=== PATIENT | female | born 1980 | race Caucasian/White ===

== ENCOUNTER 2023-02-18 10:05 | Emergency (ER) | payer OTHER ==
--- OUTSIDE RECORDS SUMMARY | 2023-02-18 10:09 | XMS REPORT | Continuity of Care Document ---
:1980 Author Organization [facility] t Address [address] [place] [address] [place] [id number] Care Team Providers Name Role Phone Soni Jacobson MD Primary Care Physician [phone] [email or web address] Attending Clinician Unavailable TAYLA MENENDEZ Attending Clinician Unavailable Tayla Shine Attending Clinician Unknown, Attending Attending Clinician Unavailable MANSOOR WARD Attending Clinician Unavailable Mansoor Alexander Attending Clinician Doctor Unassigned, [place] Attending Clinician Unavailable CICI ARMSTRONG Attending Clinician Unavailable Nathaniel WILSON, Cici Attending Clinician Kenzie Manning Attending Clinician Talha Santacruz DO Attending Clinician Enrrique Wall RN Attending Clinician Unavailable David Tavarez DO Attending Clinician Soni Jacobson MD Attending Clinician SONI JACOBSON Attending Clinician Unavailable Bharat LOPES, Nasima Mckee Attending Clinician MARLA SOTO Attending Clinician Unavailable [email or web address] Admitting Clinician Unavailable Payers Payer Name Policy Type Policy Number Effective Date Expiration Date S surendra [employer] [place] - [id number] 2017 00:00:00 OUT OF STATE Problems Condition Condition Condition Status Onset Resolution Last Treating Co mments Source Name Details Category Date Date Treatment Clinician Date Pyelonephr Pyelonephr Disease Active 2020-0 U nivers itis itis 8-23 ity of 00:00: [place] [address] Medical Branch Obesity Obesity Disease Active 2020-0 Univers (BMI (BMI 8-23 ity of 30-39.9) 30-39.9) 00:00: [address] Allergies, Adverse Reactions, Alerts Allergy Allergy Status Severity Reaction(s) Onset Inactive Treating Comm ents Source Name Type Date Date Clinician NO KNOWN Drug Active Univers ALLERGIE Class ity of S [facility] Social History Social Habit Start Date Stop Date Quantity Comments Source Sexual orientation Univer sity of [facility] Exposure to 2021-12-25 2022-01-04 Not sure University of SARS-CoV-2 (event) 00:00:00 11:54:00 [place] [facility] [place] History of Social 2020-01-08 2020-01-08 Univers ity of function 00:00:00 00:00:00 [facility] Tobacco use and 2019-12-03 2019-12-03 Smokeless Universit y of exposure 00:00:00 00:00:00 tobacco non-user [facility] dical Branch Education 2019-12-03 2019-12-03 15 University of 00:00:00 00:00:00 [place] [facility] History SDOH 2019-12-03 2019-12-03 3 University o f Financial 00:00:00 00:00:00 [place] [facility] History SDVA Food 2019-12-03 2019-12-03 1 Univers ity of Worry 00:00:00 00:00:00 [place] [facility] History SDVA Food 2019-12-03 2019-12-03 1 Univers ity of Scarcity 00:00:00 00:00:00 [place] [facility] History SDOH 2019-12-03 2019-12-03 2 University o f Transport Med 00:00:00 00:00:00 [place] [facility] History SDOH 2019-12-03 2019-12-03 2 University o f Transport Non-Med 00:00:00 00:00:00 [place] M edical Branch Sex [birth year] At [birth year] Universit y of 00:00:00 00:00:00 [facility] Smoking Status Start Date Stop Date Source Never smoked tobacco [facility] Medications Ordered Filled Start Stop Current Ordering Indication Dosage Frequency Signature Comments Components Source Medication Medication Date Date Medication? Clinician (SIG) Name Name loratadine- Yes 1{tbl} Take 1 Un luda pseudoephed 9-25 tablet by ity of rine 11:59: mouth [place] (CLARITIN-D 30 daily. Medica l 24 HOUR) Branch 10-240 mg per 24 hr tablet aspirin-delfin 2021-0 Yes 1{tbl} Take 1 Un luda taminophen- 9-25 tablet by ity of caffeine 11:59: mouth [place] (EXCEDRIN) 30 every 6 Medica l 250-250-65 (six) Branch mg per hours as tablet needed for Pain. loratadine- Yes 1{tbl} Take 1 Un luda pseudoephed 9-25 tablet by ity of rine 11:59: mouth [place] (CLARITIN-D 30 daily. Medica l 24 HOUR) Branch 10-240 mg per 24 hr tablet aspirin-delfin 2021-0 Yes 1{tbl} Take 1 Un luda taminophen- 9-25 tablet by ity of caffeine 11:59: mouth [place] (EXCEDRIN) 30 every 6 Medica l 250-250-65 (six) Branch mg per hours as tablet needed for Pain. loratadine- Yes 1{tbl} Take 1 Un luda pseudoephed 9-25 tablet by ity of rine 11:59: mouth [place] (CLARITIN-D 30 daily. Medica l 24 HOUR) Branch 10-240 mg per 24 hr tablet aspirin-delfin 2021-0 Yes 1{tbl} Take 1 Un luda taminophen- 9-25 tablet by ity of caffeine 11:59: mouth [place] (EXCEDRIN) 30 every 6 Medica l 250-250-65 (six) Branch mg per hours as tablet needed for Pain. ondansetron Yes [id number] 4mg Take 1 Univers 4 mg 9-25 tablet by ity of disintegrat 00:00: mouth [place] ing tablet 00 every 8 Medica l (eight) Branch hours as needed for Nausea and Vomiting (N/V). methocarbam 2021- No 500mg 500 mg, U nivers oL 4-05 04-05 Oral, ity of (ROBAXIN) 18:23: 18:24 ONCE, 1 [place] tablet 500 [place] :00 dose, On Medic al mg Wed07/15/21 Branch at 1330, Routine naproxen 2021- No 500mg 500 mg, Univ ers (NAPROSYN) 4- 04-05 Oral, ity of tablet 500 18:23: 18:24 ONCE, 1 Bin[place] as mg 00 :00 dose, On Medical e 07/15/21 Branch at 1330, Routine methocarbam Yes [id number] 500mg Take 1 Univers oL 500 mg 4-05 tablet by ity o f tablet 00:00: mouth 4 [place] 00 (four) Medical times Branch daily as needed for Pain (scale 4-6). naproxen Yes [id number] 500mg Take 1 U nivers (NAPROSYN) 4-05 tablet by ity of 500 mg 00:00: mouth 2 [place] tablet 00 (two) Medical times Branch daily with meals. methocarbam Yes [id number] 500mg Take 1 Univers oL 500 mg 4-05 tablet by ity o f tablet 00:00: mouth 4 [place] 00 (four) Medical times Branch daily as needed for Pain (scale 4-6). naproxen Yes [id number] 500mg Take 1 U nivers (NAPROSYN) 4-05 tablet by ity of 500 mg 00:00: mouth 2 [place] tablet 00 (two) Medical times Branch daily with meals. sulfamethox 2021- No [id number] 1{tbl} Take 1 Univers azole-trime 2-14 -18 tablet by it y of thoprim 00:00: 05:59 mouth 2 [place] (BACTRIM 00 :00 (two) Medical DS) 800-160 times Branch mg per daily for tablet 3 days. amLODIPine Yes [id number] 5mg Take 1 U nivers 5 mg tablet 7-20 tablet by ity of 00:00: mouth [place] 00 daily. Medical Branch amLODIPine Yes [id number] 5mg Take 1 U nivers 5 mg tablet 7-20 tablet by ity of 00:00: mouth [place] 00 daily. Medical Branch amLODIPine 0 Yes [id number] 5mg Take 1 U nivers 5 mg tablet 7-20 tablet by ity of 00:00: mouth [place] 00 daily. Medical Branch amLODIPine 0 Yes [id number] 5mg Take 1 U nivers 5 mg tablet 7-20 tablet by ity of 00:00: mouth [place] 00 daily. Medical Branch amLODIPine 0 Yes [id number] 5mg Take 1 U nivers 5 mg tablet 7-20 tablet by ity of 00:00: mouth [place] 00 daily. Medical Branch amLODIPine 0 Yes [id number] 5mg Take 1 U nivers 5 mg tablet 7-20 tablet by ity of 00:00: mouth [place] 00 daily. Medical Branch amLODIPine Yes [id number] 5mg Take 1 U nivers 5 mg tablet 7-20 tablet by ity of 00:00: mouth [place] 00 daily. Medical Branch amLODIPine 0 Yes [id number] 5mg Take 1 U nivers 5 mg tablet 7-20 tablet by ity of 00:00: mouth [place] 00 daily. Medical Branch amLODIPine 0 Yes [id number] 5mg Take 1 U nivers 5 mg tablet 7-20 tablet by ity of 00:00: mouth [place] 00 daily. Medical Branch amLODIPine 0 Yes [id number] 5mg Take 1 U nivers 5 mg tablet 7-20 tablet by ity of 00:00: mouth [place] 00 daily. Medical Branch loratadine- 0 Yes 1{tbl} Take 1 Un luda pseudoephed 7-19 tablet by ity of rine 23:13: mouth [place] (CLARITIN-D 23 daily. Medica l 24 HOUR) Branch 10-240 mg per 24 hr tablet aspirin-delfin 0 Yes 1{tbl} Take 1 Un luda taminophen- 7-19 tablet by ity of caffeine 23:13: mouth [place] (EXCEDRIN) 23 every 6 Medica l 250-250-65 (six) Branch mg per hours as tablet needed for Pain. loratadine- Yes 1{tbl} Take 1 Un luda pseudoephed 7-19 tablet by ity of rine 23:13: mouth [place] (CLARITIN-D 23 daily. Medica l 24 HOUR) Branch 10-240 mg per 24 hr tablet aspirin-delfin 2020-0 Yes 1{tbl} Take 1 Un luda taminophen- 7-19 tablet by ity of caffeine 23:13: mouth [place] (EXCEDRIN) 23 every 6 Medica l 250-250-65 (six) Branch mg per hours as tablet needed for Pain. loratadine- 2020-0 Yes 1{tbl} Take 1 Un luda pseudoephed 7-19 tablet by ity of rine 18:13: mouth [place] (CLARITIN-D 23 daily. Medica l 24 HOUR) Branch 10-240 mg per 24 hr tablet aspirin-delfin 2020-0 Yes 1{tbl} Take 1 Un luda taminophen- 7-19 tablet by ity of caffeine 18:13: mouth [place] (EXCEDRIN) 23 every 6 Medica l 250-250-65 (six) Branch mg per hours as tablet needed for Pain. loratadine- 2020-0 Yes 1{tbl} Take 1 Un luda pseudoephed 7-19 tablet by ity of rine 18:13: mouth [place] (CLARITIN-D 23 daily. Medica l 24 HOUR) Branch 10-240 mg per 24 hr tablet aspirin-delfin 2020-0 Yes 1{tbl} Take 1 Un luda taminophen- 7-19 tablet by ity of caffeine 18:13: mouth [place] (EXCEDRIN) 23 every 6 Medica l 250-250-65 (six) Branch mg per hours as tablet needed for Pain. loratadine- 2020-0 Yes 1{tbl} Take 1 Un luda pseudoephed 7-19 tablet by ity of rine 18:13: mouth [place] (CLARITIN-D 23 daily. Medica l 24 HOUR) Branch 10-240 mg per 24 hr tablet aspirin-delfin 2020-0 Yes 1{tbl} Take 1 Un luda taminophen- 7-19 tablet by ity of caffeine 18:13: mouth [place] (EXCEDRIN) 23 every 6 Medica l 250-250-65 (six) Branch mg per hours as tablet needed for Pain. loratadine- 2020-0 Yes 1{tbl} Take 1 Un luda pseudoephed 7-19 tablet by ity of rine 18:13: mouth [place] (CLARITIN-D 23 daily. Medica l 24 HOUR) Branch 10-240 mg per 24 hr tablet aspirin-delfin Yes 1{tbl} Take 1 Un luda taminophen- 7-19 tablet by ity of caffeine 18:13: mouth [place] (EXCEDRIN) 23 every 6 Medica l 250-250-65 (six) Branch mg per hours as tablet needed for Pain. loratadine- Yes 1{tbl} Take 1 Un luda pseudoephed 7-19 tablet by ity of rine 18:13: mouth [place] (CLARITIN-D 23 daily. Medica l 24 HOUR) Branch 10-240 mg per 24 hr tablet aspirin-delfin Yes 1{tbl} Take 1 Un luda taminophen- 7-19 tablet by ity of caffeine 18:13: mouth [place] (EXCEDRIN) 23 every 6 Medica l 250-250-65 (six) Branch mg per hours as tablet needed for Pain. ciprofloxac 2020- No [id number] 500mg Take 1 Univers in HCl 500 7-19 07-25 tablet by ity of mg tablet 00:00: 04:59 mouth [place] 00 :00 every 12 Medical (twelve) Branch hours for 5 days. cefUROXime 2019-04 Yes [id number] 250mg Take 1 Univers 250 mg 2-04 tablet by ity of tablet 00:00: mouth 2 [place] 00 (two) Medical times Branch daily. cefUROXime 2019- Yes [id number] 250mg Take 1 Univers 250 mg 2-04 tablet by ity of tablet 00:00: mouth 2 [place] 00 (two) Medical times Branch daily. cefUROXime 2019- Yes [id number] 250mg Take 1 Univers 250 mg 2-04 tablet by ity of tablet 00:00: mouth 2 [place] 00 (two) Medical times Branch daily. cefUROXime 2020-1 Yes [id number] 250mg Take 1 Univers 250 mg 2-04 tablet by ity of tablet 00:00: mouth 2 [place] 00 (two) Medical times Branch daily. cefUROXime 2019- Yes [id number] 250mg Take 1 Univers 250 mg 2-04 tablet by ity of tablet 00:00: mouth 2 [place] 00 (two) Medical times Branch daily. Guaifenesin Yes [id number] 1200mg Take 1 Univers (MUCINEX) 12-06 tablet by ity o f 1,200 mg 00:00: mouth 2 [place] tablet 00 (two) Medical times Branch daily. Guaifenesin 2020- No [id number] 1200mg Take 1 Univers (MUCINEX) 12-06 [id number] tablet by ity of 1,200 mg 00:00: 00:00 mouth 2 [place] tablet 00 :00 (two) Medical times Branch daily. Guaifenesin 2020- No [id number] 1200mg Take 1 Univers (MUCINEX) 12-06 [id number] tablet by ity of 1,200 mg 00:00: 00:00 mouth 2 [place] tablet 00 :00 (two) Medical times Branch daily. albuterol 2020- No [id number] 2{puff} Inhale 2 Univers 90 12-06 Puffs ity of mcg/actuati 00:00: 04:59 every 6 [place] on inhaler 00 :00 (six) Medical hours as Branch needed for Wheezing or Shortness of Breath for up to 30 days. ciprofloxac 2019- No [id number] 500mg Take 1 Univers in HCl 500 12-06 tablet by ity of mg tablet 00:00: 04:59 mouth [place] 00 :00 every 12 Medical (twelve) Branch hours for 10 days. No known No Univers medications [facility] Vital Signs Vital Name Observation Time Observation Value Comments Source Systolic blood 2022-01-04 17:00:00 149 mm[Hg[facility] Diastolic blood 2022-01-04 17:00:00 96 mm[Hg] [facility] Heart rate 2022-01-04 16:59:00 105 /min [facility] Body temperature 2022-01-04 16:59:00 36.89 Alexa [facility] Respiratory rate 2022-01-04 16:59:00 16 /min [facility] Body height 2022-01-04 16:59:00 160 cm [facility] Body weight 2022-01-04 16:59:00 83.689 kg [facility] BMI 2022-01-04 16:59:00 32.68 kg/m2 Universi ty [facility] [place] [facility] Oxygen saturation in 2022-01-04 16:59:00 100 /min University of Arterial blood by [email or web address] sushant Pulse oximetry Branch Systolic blood 2021-07-15 17:14:00 151 mm[Hg] Univer sity of pressure [place] [facility] Diastolic blood 2021-07-15 17:14:00 112 mm[Hg] Unive rsity of pressure [place] [facility] Heart rate 2021-07-15 17:14:00 83 /min Universi ty [facility] [place] [facility] Body temperature 2021-07-15 17:14:00 36.61 Alexa Univ ersity of [place] [facility] Respiratory rate 2021-07-15 17:14:00 18 /min Univ ersity of [place] [facility] Body height 2021-07-15 17:14:00 160 cm [facility]i ty [facility] [place] [facility] Body weight 2021-07-15 17:14:00 83.915 kg [facility]i ty [facility] [place] [facility] BMI 2021-07-15 17:14:00 32.77 kg/m2 Universi ty [facility] [place] [facility] Oxygen saturation in 2021-07-15 17:14:00 99 /min University of Arterial blood by [email or web address] sushant Pulse oximetry Branch Systolic blood 2021-05-26 22:02:00 137 mm[Hg] Univer sity of pressure [place] [facility] Diastolic blood 2021-05-26 22:02:00 82 mm[Hg] Unive rsity of pressure [place] [facility] Heart rate 2021-05-26 22:02:00 94 /min Universi ty [facility] [place] [facility] Body temperature 2021-05-26 22:02:00 36.67 Alexa Univ ersity of [place] [facility] Respiratory rate 2021-05-26 22:02:00 17 /min Univ ersity of [place] [facility] Body height 2021-05-26 22:02:00 160 cm Universi ty [facility] [place] [facility] Body weight 2021-05-26 22:02:00 85.276 kg [facility]i ty [facility] [place] [facility] BMI 2021-05-26 22:02:00 33.30 kg/m2 Universi ty [facility] [place] [facility] Oxygen saturation in 2021-05-26 22:02:00 100 /min University of Arterial blood by [place] Medi sushant Pulse oximetry Branch Systolic blood 2020-03-15 17:44:00 138 mm[Hg] Univer sity of pressure [facility] Diastolic blood 2020-03-15 17:44:00 97 mm[Hg] Unive rsity of pressure [facility] Heart rate 2020-03-15 17:44:00 78 /min Universi ty of [facility] Body temperature 2020-03-15 17:44:00 36.39 Alexa Univ ersity of [facility] Body height 2020-03-15 17:44:00 160 cm Universi ty [facility] [place] [facility] Body weight 2020-03-15 17:44:00 80.74 kg Universi ty [facility] [place] [facility] BMI 2020-03-15 17:44:00 31.53 kg/m2 Universi ty of [facility] Systolic blood 2020-01-08 21:03:00 154 mm[Hg] Univer sity of pressure [facility] Branch Diastolic blood 2020-01-08 21:03:00 97 mm[Hg] Unive rsity of pressure [facility] Heart rate 2020-01-08 21:03:00 75 /min Universi ty of [facility] Body temperature 2020-01-08 21:03:00 36.78 Alexa Univ ersity of [facility] Body height 2020-01-08 21:03:00 160 cm [facility]i ty [facility] [place] [facility] Body weight 2020-01-08 21:03:00 77.111 kg [facility]i ty [facility] [place] [facility] BMI 2020-01-08 21:03:00 30.11 kg/m2 Universi ty of [facility] Systolic blood 2020-01-08 21:03:00 154 mm[Hg] Univer sity of pressure [facility] Diastolic blood 2020-01-08 21:03:00 97 mm[Hg] Unive rsity of pressure [facility] Branch Heart rate 2020-01-08 21:03:00 75 /min Universi ty of [facility] Body temperature 2020-01-08 21:03:00 36.78 Alexa Univ ersity of [facility] Body height 2020-01-08 21:03:00 160 cm Universi ty of [facility] Body weight 2020-01-08 21:03:00 77.111 kg Universi ty of [facility] Branch BMI 2020-01-08 21:03:00 30.11 kg/m2 Universi ty of [facility] Procedures Procedure Date / Time Performed Performing Clinician Julio e ASSIGNMENT OF BENEFITS 2021-07-15 18:26:35 Doctor Unassigned, No [facility] Name [facility] POCT TEST 2021-07-15 18:17:00 Mansoor Ward [facility] COMP. METABOLIC PANEL 2021-07-15 18:16:00 Mansoor Ward [facility] ([id number]) [facility] CBC WITH DIFF 2021-07-15 18:16:00 Mansoor Ward [facility] URINALYSIS 2021-07-15 18:16:00 Mansoor Ward [facility] CONSENT/REFUSAL FOR 2021-07-15 17:09:08 Doctor [facility]igned, [facility] TREAT[facility] POCT URINALYSIS 2021-05-26 22:09:00 Cici Armstrong [facility] CONSENT/REFUSAL FOR 2021-05-26 21:58:17 Doctor Unassigned, No [facility] TREATMENT REFERRAL- 2021-05-08 06:01:00 Doctor Unassigned, No [facility] REQUEST/RESPONSE [facility] NOTICE OF PRIVACY 2020-10-26 20:26:18 Doctor Unassigned, No [facility] PRACTICES [facility] Encounters Start End Encounter Admission Attending Care Care Encounter Source Date/Time Date/Time Type Type Clinicians Facility Department ID 2021-02-10 Emergency [facility] [id number] Univers 08:52:29 [facility] 2023-02-06 2023-02-06 Outpatient [email or web address] PRIV PRIV [id number] [facility] 00:00:00 00:00:00 diyala_S [id number] Medic al 2022-01-04 2022-01-04 Outpatient R SHON [facility] [id number] Univers 12:00:00 12:20:03 TAYLA [facility] 2022-01-04 2022-01-04 Urgent Tayla Menendez [facility] [id number] Univers 12:00:00 12:20:03 Care Unknown, Attending [id number] [id number] Bin[place] as DESTINY?BLEA [phone] [address] MEDICAL OFFICE [facility] 2021-07-15 2021-07-15 Emergency [facility] [id number] Univers 12:18:00 15:42:00 MANSOOR ity of [facility] 2021-07-15 2021-07-15 Emergency [facility] [id number] Univers 12:18:00 15:42:00 Mansoor S [place] [id number] i ty of [id number] [phone] [facility] 084 [place] 2021-05-28 2021-05-28 Patient Doctor ALLISON [id number] Univers 00:00:00 00:00:00 Secure Msg Unassigned, JANNET [id number] ity of [place] [facility] [id number] Binh as [phone] [facility] 019 [place] 2021-05-26 2021-05-26 Outpatient [facility] [id number] Univers 16:20:00 16:24:06 CICI ity [facility] 2021-05-26 2021-05-26 [facility] [id number] Univers 16:20:00 16:24:06 Care [facility] [id number] it y of [place] [id number] [place] as DESTINY?BLEA [phone] [address] [facility] 2021-05-26 2021-05-26 Orders Doctor ALLISON [id number] Univers 00:00:00 00:00:00 Only Unassigned, JANNET [id number] ity of [place] [facility] [id number] Binh as [phone] [facility] 009 [place] 2021-05-12 2021-05-12 Letter ALLISON Manning [id number] Univers 00:00:00 00:00:00 (Out) Kenzie JANNET [id number] it y of HOSPITAL [id number] Binh as [phone] [facility] 043 Branch 2021-05-08 2021-05-08 Orders Doctor ALLISON 1.2.840.114 [id number] Univers 00:00:00 00:00:00 Only Unassigned, JANNET [id number] ity of [place] [facility] [id number] Binh as [phone] [facility] 009 Branch 2021-05-08 2021-05-08 Patient Doctor ALLISON 1.2.840.114 [id number] Univers 00:00:00 00:00:00 Secure Msg Unassigned, JANNET [id number] ity of [place] [facility] [id number] Binh as [phone] [facility] 019 Branch 2020-11-19 2020-11-19 Refill Neeta [facility] 1.2.840.114 [id number] Univers 00:00:00 00:00:00 Talha PRIMARY [id number] it y [id number] [facility] [phone] Ca dical 389 Branch 2020-10-29 2020-10-29 Transition Kristie Wall 1.2.840.114 [id number] Univers 00:00:00 00:00:00 of Care Enrrique Chelsea Diamondy [id number] ity of [id number] [phone] [facility] 403 Branch 2020-10-26 2020-10-26 Orders Doctor ALLISON 1.2.840.114 [id number] Univers 00:00:00 00:00:00 Only Unassigned, JANNET [id number] ity of [place] [facility] [id number] Binh as [phone] [facility] 009 Branch 2020-06-27 2020-06-27 Patient Corby [facility] 1.2.840.114 [id number] Univers 00:00:00 00:00:00 Outreach David PRIMARY [id number] i ty of [id number] [place] [phone] Ca [address] 2020-03-15 2020-03-15 Office [facility] 1.2.840.114 [id number] Univers 11:37:23 11:52:23 Visit Soni Goodson [id number] it y of [place] [id number] Binh as Professio [phone] [address] Office [facility] 2020-03-15 2020-03-15 Outpatient R [facility] [id number] Univers 11:15:00 11:15:00 [facility] 2020-03-15 2020-03-15 Telephone [facility] 1.2.840.114 [id number] Univers 00:00:00 00:00:00 Soni [facility] [id number] it y of [place] [id number] Binh as Professio [phone] [address] 2020-01-08 2020-01-08 [facility] 1.2.840.114 [id number] 15:59:36 16:29:36 Visit Soni [facility] [id number] [place] [id number] Professio [phone] [address] 2020-01-08 2020-01-08 [facility] 1.2.840.114 [id number] Univers 15:59:36 16:29:36 Visit Soni [facility] [id number] it y of [place] [id number] Binh as Professio [phone] [address] Office [facility] 2020-01-08 2020-01-08 Outpatient R [facility] [id number] Univers 16:15:00 16:15:00 [facility] 2020-01-08 2020-01-08 Letter [facility] 1.2.840.114 [id number] 00:00:00 00:00:00 (Out) Soni [facility] [id number] [place] [id number] Professio [phone] nal [address] 2020-01-08 2020-01-08 Letter Juan Carlos [facility] 1.2.840.114 [id number] Univers 00:00:00 00:00:00 (Out) Soni Kellee [id number] it y of Frankie Ortiz [id number] Binh as Professio [phone] Me dical [facility] 044 Branch Office [address] 2019-12-08 2019-12-08 Transition Kristie Nicholson 1.2.840.114 [id number] Univers 00:00:00 00:00:00 of Care Nasima Anderson [id number] i ty of [id number] [phone] [place] [address] Branch 2019-12-03 2019-12-03 Emergency [facility] [id number] Univers 10:58:00 10:58:00 MARLA boykin of [facility] Results Test Description Test Time Test Comments Results Result Comments Source COMP. METABOLIC PANEL (85144) 2021-07-15 18:36:55 Test Item Value Reference Range Interpretation Comme nts NA (test code = 4001769732) 139 mmol/L 135-145 K (test code = 7990594667) 4.2 mmol/L 3.5-5.0 CL (test code = 3563501507) 103 mmol/L 98-108 CO2 TOTAL (test code = 27 mmol/L 23-31 [id number]) AGAP (test code = 4289695153) 2-16 BUN (test code = 4543334277) 8 mg/dL 7-23 GLUCOSE (test code = 6312957735) 83 mg/dL 70-110 CREATININE (test code = 0.66 mg/dL 0.50-1.04 0255469255) TOTAL BILI (test code = 0.4 mg/dL 0.1-1.5 4451497242) CALCIUM (test code = 3646081089) 9.2 mg/dL 8.6-10.6 T PROTEIN (test code = 7.4 g/dL 6.3-8.2 3839433303) ALBUMIN (test code = 9841855265) 4.7 g/dL 3.5-5.0 ALK PHOS (test code = 3705140431) 84 U/L 34-122 ALTv (test code = 1742-6) 13 U/L 5-35 AST(SGOT) (test code = 26 U/L 13-40 7318532243) eGFR (test code = 5962350825) mL/min/1.73m2 LUCIO (test code = LUCIO) Association of Glomerular Filtration Rate (GFR) and Staging of Kidney Disease* + +--------- + ----+| GFR (mL/min/1.73 m2) ?| With Kidney Damage ?| ?Without Kidney Damage+ +--- + +| ?>90 ?| ?Stage one ?| ? Normal ?+ +-------- + -----+| ?60-89 ?| ?Stage two ?| ? Decreased GFR ? + +--------- + ----+| ?30-59 ?| ?Stage three ?| ? Stage three ? + +--------- + ----+| ?15-29 ?| ?Stage four ? | ? Stage four ?+ +-------- + -----+| ?<15 (or dialysis) ? ?| ?Stage five ? | ? Stage five ?+ +-------- + -----+ *Each stage assumes the associated GFR level has been in effect for at least three months. ?Stages 1 to 5, with or without kidney disease, indicate chronic kidney disease. Notes: Determination of stages one and two (with eGFR >59mL/min/1.73 m2) requires estimation of kidney damage for at least three months as defined by structural or functional abnormalities of the kidney, manifested by either:Pathological abnormalities or Markers of kidney damage (including abnormalities in the composition of the blood or urine or abnormalities in imaging tests). [facility] WITH [id number] 18:27:12 Test Item Value Reference Range Interpretation Comments WBC (test code = See_Comment [Automated 7316-2) message] The sy stem which generated this result transmitted reference range : 4.30 - 11.10 10*3/?L. The reference range was not used to interpret this result as normal/abnormal . RBC (test code = See_Comment [Automated 789-8) message] The sy stem which generated this result transmitted reference range : 3.93 - 5.25 10*6/?L. The reference range was not used to interpret this result as normal/abnormal . HGB (test code = 12.2 g/dL 11.6-15.0 718-7) HCT (test code = 40.1 % 35.7-45.2 4544-3) MCV (test code = 77.7 fL 80.6-95.5 L 787-2) MCH (test code = 23.6 pg 25.9-32.8 L 785-6) MCHC (test code = 30.4 g/dL 31.6-35.1 L 786-4) RDW-SD (test code = 41.1 fL 39.0-49.9 40614-0) RDW-CV (test code = 14.6 % 12.0-15.5 788-0) PLT (test code = See_Comment H [Automated 777-3) message] The sy stem which generated this result transmitted reference range : 166 - 358 10*3/ ?L. The reference r zeke was not used to interpret this result as normal/abnormal . MPV (test code = 9.0 fL 9.5-12.9 L 57684-2) NRBC/100 WBC (test See_Comment [Automat ed code = 5153540758) message] The system which generated this result transmitted reference range : 0.0 - 10.0 /100 WBCs. The refer ence range was not u sed to interpret th is result as normal/abnormal . NRBC x10^3 (test code <0.01 See_Comment [Auto mated = 4194941043) message] The s ystem which generated this result transmitted reference range : 10*3/?L. The reference range was not used to interpret this result as normal/abnormal . GRAN MAT (NEUT) % 52.9 % (test code = 770-8) IMM GRAN % (test code 0.60 % = 3693173270) LYMPH % (test code = 32.9 % 736-9) MONO % (test code = 12.4 % 5905-5) EOS % (test code = 0.6 % 713-8) BASO % (test code = 0.6 % 706-2) GRAN MAT x10^3(ANC) 3.48 10*3/uL 1.88-7.09 (test code = 9402452433) IMM GRAN x10^3 (test 0.04 10*3/uL 0.00-0.06 code = 6272323683) LYMPH x10^3 (test code 2.17 10*3/uL 1.32-3.29 = 731-0) MONO x10^3 (test code 0.82 10*3/uL 0.33-0.92 = 742-7) EOS x10^3 (test code = 0.04 10*3/uL 0.03-0.39 711-2) BASO x10^3 (test code 0.04 10*3/uL 0.01-0.07 = 704-7) Lab Interpretation Abnormal (test code = 36405-8) [facility] [id number] 18:17:00 Test Item Value Reference Range Interpretation Comments POCT PREG (test code = 1605) negative On board controls acceptable with present C Line (test code = 3574) POCT PREG LOT # (test code = 3575) [id number] POCT PREG TEST DATE (test 01/09/2023 code = 3576) Lab Interpretation (test code = Normal 34913-9) [facility] URINALYSIS W SPECIFIC [id number] 22:10:00 Test Item Value Reference Range Interpretation Comments POCT U SP GRAV (test 1.000 mg/dl 1.005-1.025 A code = 3255) POCT PH U (test code = 7 mg/dl 5-8 3254) POCT U LEUK EST (test trace Negative - code = 3263) Negative POCT U NIT (test code positive Negative - = 3262) Negative POCT U PROT (test code trace Negative - = 3259) Negative POCT U GLU (test code normal Negative - = 3256) Negative POCT U KETONE (test negative Negative - code = 3258) Negative POCT U UROBILI (test normal 0.2-1 code = 3260) POCT U BILI (test code negative Negative - = 3261) Negative POCT U BLD (test code trace Negative - = 3257) Negative POCT U COLOR (test dark yellow code = 3266) POCT U APPEAR (test cloudy code = 3267) LUCIO (test code = LUCIO) accurate development and interpretation of all internal controls Lab Interpretation Abnormal (test code = 37053-3) [facility]"
--- NOTE | 2023-02-18 11:16 | RAD REPORT ---
EXAM DESCRIPTION: RAD - Foot Left 3 View - 02/18/2023 11:04 am CLINICAL HISTORY: Left Foot pain FINDINGS: No fracture or dislocation is seen. Hallux valgus deformity. Mild lateral subluxation first proximal phalanx
--- NOTE | 2023-02-18 11:17 | RAD REPORT ---
EXAM DESCRIPTION: RAD - Foot Right 3 View - 02/18/2023 11:04 am CLINICAL HISTORY: Right foot pain FINDINGS: No fracture or dislocation is seen. Hallux valgus deformity. Mild lateral subluxation first proximal phalanx
--- NOTE | 2023-02-18 11:31 | RAD REPORT ---
EXAM DESCRIPTION: Carlie Thayer (2 Views)02/18/2023 11:20 am CLINICAL HISTORY: Chest pain COMPARISON: None FINDINGS: The lungs appear clear of acute infiltrate. The heart is normal size IMPRESSION: No acute abnormalities displayed
--- NOTE | 2023-02-18 11:48 | ER ---
Nurse's Notes [facility] Name: Xi North Age: 42 yrs Sex: Female : 1980 Arrival Date: 02/18/2023 Time: 10:05 Bed DX4 Private MD: Diagnosis: Pain in left foot;Pain in right foot Presentation: 02/18 10:19 Chief complaint: Patient states: I think i have heel spurs. I have extreme pain in both kd3 of my feet. Ebola Screen: No symptoms or risks identified at this time. Initial Sepsis Screen: Does the patient meet any 2 criteria? No. Patient's initial sepsis screen is negative. Does the patient have a suspected source of infection? No. Patient's initial sepsis screen is negative. Risk Assessment: Do you want to hurt yourself or someone else? Patient reports no desire to harm self or others. Onset of symptoms was February 18, 2023. 10:19 Method Of Arrival: Ambulatory kd3 10:19 Acuity: MARIELA 4 kd3 10:27 Coronavirus screen: Vaccine status: Patient reports receiving the 2nd dose of the covid kd3 vaccine. Triage Assessment: 10:21 General: Appears in no apparent distress. Behavior is calm, cooperative. Pain: kd3 Complains of pain in right foot and left foot. Historical: - Allergies: 10:21 No Known Allergies; kd3 - PSHx: 10:21 Cholecystectomy; kd3 - Immunization history:: Adult Immunizations up to date. - Social history:: Smoking status: unknown. Vital Signs: 10:21 Pain 6/10; kd3 10:22 Pulse 99; Resp 17; Pulse Ox 100% on R/A; kd3 10:26 BP 145 / 109; Temp 98.5; Weight 85.73 kg; Height 5 ft. 3 in. ; kd3 10:26 Body Mass Index 33.48 (85.73 kg, 160.02 cm) kd3 10:21 Pain Scale: Adult kd3 ED Course: 10:07 Patient arrived in ED. rg4 10:12 Kofi Valentino DO is Attending Physician. ms3 10:20 Triage completed. kd3 10:22 Arm band placed on right wrist. kd3 11:06 Foot Left 3 View XRAY In Process Unspecified. EDMS 11:06 Foot Right 3 View XRAY In Process Unspecified. EDMS 11:22 Chest Pa And Lat (2 Views) XRAY In Process Unspecified. EDMS 11:47 Isac Winter DPM is Referral Physician. ms3 12:26 Sarah Cruz, RN is Primary Nurse. iw Administered Medications: No medications were administered Outcome: 11:48 Discharge ordered by . ms3 12:26 Patient left the ED. iw Signatures: Dispatcher [employer] EDMS Sarah Cruz, RN RN Minerva Chery rg4 Kofi Valentino DO DO ms3 Stephanie Haile RN RN kd3
--- NOTE | 2023-02-18 11:48 | EDPHYS ---
Physician Documentation [facility] Name: Xi North Age: 42 yrs Sex: Female : 1980 Arrival Date: 02/18/2023 Time: 10:05 Bed DX4 Private MD: ED Physician Kofi Valentino HPI: 02/18 11:11 This 42 yrs old Female presents to ER via Ambulatory with complaints of Foot Pain, Leg ms3 Pain. 11:11 42-year-old female with no past medical history presents to the emergency department ms3 for concern of heel spurs on bilateral feet. Patient states she has had 6 over 10 feet pain for 3 weeks. Patient states the pain is worse with walking. Patient denies any alleviating or inciting factors. Historical: - Allergies: 10:21 No Known Allergies; kd3 - PSHx: 10:21 Cholecystectomy; kd3 - Immunization history:: Adult Immunizations up to date. - Social history:: Smoking status: unknown. ROS: 11:11 Constitutional: Negative for fever, and chills. Neck: Negative for injury, pain, and ms3 swelling, Cardiovascular: Negative for chest pain, and palpitations. Respiratory: Negative for shortness of breath, cough, wheezing, and pleuritic chest pain, Abdomen/GI: Negative for abdominal pain, nausea, vomiting, diarrhea, and constipation, Skin: Negative for injury, rash, and discoloration, Neuro: Negative for headache, weakness, numbness, tingling. Psych: Negative for depression, anxiety, suicide ideation, homicidal ideation, and hallucinations, 11:11 MS/extremity: Positive for pain, of the left foot and right foot, ms3 Exam: 11:11 Constitutional: This is a well developed, well nourished patient who is awake, alert, ms3 and in no acute distress. Head/Face: Normocephalic, atraumatic. Neck: Trachea midline, no cervical lymphadenopathy. Supple, full range of motion without nuchal rigidity, or vertebral point tenderness. No Meningismus. Chest/axilla: Normal chest wall appearance and motion. Nontender with no deformity. Cardiovascular: Regular rate and rhythm with a normal S1 and S2. No gallops, murmurs, or rubs. Normal PMI, no JVD. No pulse deficits. Respiratory: Lungs have equal breath sounds bilaterally, clear to auscultation and percussion. No rales, rhonchi or wheezes noted. No increased work of breathing, no retractions or nasal flaring. Abdomen/GI: Soft, non-tender, with normal bowel sounds. No distension or tympany. No guarding or rebound. No evidence of tenderness throughout. Skin: Warm, dry with normal turgor. Normal color with no rashes, no lesions, and no evidence of cellulitis. MS/ Extremity: Pulses equal, no cyanosis. Neurovascular intact. Full, normal range of motion. Vital Signs: 10:21 Pain 6/10; kd3 10:22 Pulse 99; Resp 17; Pulse Ox 100% on R/A; kd3 10:26 BP 145 / 109; Temp 98.5; Weight 85.73 kg; Height 5 ft. 3 in. ; kd3 10:26 Body Mass Index 33.48 (85.73 kg, 160.02 cm) kd3 10:21 Pain Scale: Adult kd3 MDM: 10:34 Patient medically screened. ms3 11:48 Differential diagnosis: fracture, Spur versus planter fasciitis. Data reviewed: vital ms3 signs, nurses notes, radiologic studies, and as a result, I will discharge patient. Independent interpretation of the following test(s) in the Emergency Department X-Ray: My interpretation is X-ray images reviewed by me do not reveal calcaneal spurring. Counseling: I had a detailed discussion with the patient and/or guardian regarding the historical points, exam findings, and any diagnostic results supporting the discharge/admit diagnosis, radiology results, the need for outpatient follow up, to return to the emergency department if symptoms worsen or persist or if there are any questions or concerns that arise at home. ED course: Discussed x-ray findings with patient. Patient to follow-up with Dr. Winter in 2 to 3 days. Patient understands and agrees with plan. All questions were answered. Return precautions discussed include worsening symptoms, or any other concerns. 02/18 10:27 Order name: Foot Left 3 View XRAY; Complete Time: 11:18 ms3 02/18 10:27 Order name: Foot Right 3 View XRAY; Complete Time: 11:18 ms3 02/18 10:34 Order name: Chest Pa And Lat (2 Views) XRAY; Complete Time: 11:35 ms3 02/18 10:34 Order name: EKG; Complete Time: 10:35 ms3 Administered Medications: No medications were administered Disposition Summary: 02/18/23 11:48 Discharge Ordered Notes: Location: Home ms3 Condition: Stable ms3 Diagnosis - Pain in left foot ms3 - Pain in right foot ms3 Followup: ms3 - With: Isac Winter DPM - When: 2 - 3 days - Reason: Recheck today's complaints Discharge Instructions: - Discharge Summary Sheet ms3 - Foot Pain ms3 Forms: - Medication Reconciliation Form ms3 - Thank You Letter ms3 - Antibiotic Education ms3 - Prescription Opioid Use ms3 - Patient Portal Instructions ms3 - Leadership Thank You Letter ms3 Signatures: Dispatcher [employer] EDMS Kofi Valentino DO DO ms3 Stephanie Haile RN RN kd3 Corrections: (The following items were deleted from the chart) 10:37 10:34 Cardiac monitoring ordered. ms3 ms3 10:37 10:34 IV Saline Lock ordered. ms3 ms3 10:38 10:34 EKG - Nurse/Tech ordered. ms3 ms3 10:38 10:34 Labs collected and sent ordered. ms3 ms3 10:42 10:35 BASIC METABOLIC PANEL+C.LAB.BRZ ordered. EDMS EDMS 10:42 10:35 CBC+H.LAB.BRZ ordered. EDMS EDMS 10:42 10:35 MAGNESIUM+C.LAB.BRZ ordered. EDMS EDMS 10:42 10:35 Troponin High Sensitivity+C.LAB.BRZ ordered. EDMS EDMS 11:17 11:11 Constitutional: Negative for fever, and chills. Neck: Negative for injury, pain, ms3 and swelling, Cardiovascular: Negative for chest pain, and palpitations. Respiratory: Negative for shortness of breath, cough, wheezing, and pleuritic chest pain, Abdomen/GI: Negative for abdominal pain, nausea, vomiting, diarrhea, and constipation, MS/Extremity: Negative for injury and deformity, Skin: Negative for injury, rash, and discoloration, Neuro: Negative for headache, weakness, numbness, tingling. Psych: Negative for depression, anxiety, suicide ideation, homicidal ideation, and hallucinations, ms3 11:25 10:34 Oxygen Per Protocol ordered. ms3 iw 11:25 10:34 O2 Sat Monitoring ordered. ms3 iw
[2023-02-18 12:34] VITALS: O2SAT 100
[2023-02-18 12:35] VITALS: BP 145/109; TEMP 98.5
== END 2023-02-18 12:26 | disposition home or self-care (01) ==
LOC: ER 10:05
DX: M79.672 Pain in left foot (principal); M79.671 Pain in right foot
CPT/HCPCS: 71046; 93005; 99281